=== PATIENT | male | born 1930 | race African-American/Black ===

== ENCOUNTER 2018-09-18 15:00 | Inpatient (IN) | payer MEDICARE, BC ==
[~2018-09-18] VITALS: Ht 172.7 cm; Wt 59.6 kg
[2018-09-18] MEDS ORDERED: SODIUM CHLORIDE 0.9% 1,000 ML IV ONE (15:30)
[2018-09-18 15:59] LABS: HEMATOCRIT. 46.9 % (42.0-52.0); HEMOGLOBIN. 15.8 g/dL (14.0-18.0); MEAN CORPUSCULAR HEMOGLOBIN 31.2 pg (28.0-32.0); MEAN CORPUSCULAR VOLUME 92.6 fL (80.0-94.0); MEAN PLATELET VOLUME 8.7 fl (7.4-10.4); PLATELET 145 x1000/uL (130-400); RED BLOOD CELL COUNT 5.07 mill/uL (4.7-6.1); RED CELL DISTRIBUTION WIDTH 13.5 % (11.6-14.6)
[2018-09-18 16:01] LABS: CHLORIDE 108 mEq/L (98-107)
[2018-09-18 16:43] LABS: CREATINE KINASE 811 IU/L (39-308)
[2018-09-18 16:52] LABS: PLATELET ESTIMATE NORMAL
[2018-09-18 17:07] LABS: CLARITY URINE CLEAR (CLEAR); COLOR URINE YELLOW (YELLOW); KETONES URINE 2+ (NEGATIVE); LEUKOCYTE ESTERASE URINE NEGATIVE (NEGATIVE); NITRITE URINE NEGATIVE (NEGATIVE); OCCULT BLOOD URINE 3+ (NEGATIVE); PROTEIN URINE 2+ (NEGATIVE); SPECIFIC GRAVITY URINE 1.021 (1.005-1.030)
[2018-09-18 22:30] VITALS: BP 148/77
[2018-09-18] MEDS: SODIUM CHLORIDE 0.45% 1,000 ML IV SCH (23:37)
[2018-09-19 04:34] VITALS: BP 185/89
[2018-09-19] MEDS: AMLODIPINE 10MG TABLET PO SCH (06:26)
[2018-09-19] MEDS: OMEPRAZOLE 20MG CAPSULE EXTENDED RELEASE PO SCH (06:26)
[2018-09-19] MEDS: LOSARTAN POTASSIUM 100 MG TABLET PO SCH (06:26)
[2018-09-19 08:00] VITALS: BP 171/84
[2018-09-19 09:00] VITALS: BP 141/69
[2018-09-19 09:00] LABS: BASOPHILS % 0.5 % (0.0-2.0); EOSINOPHILS % 1.1 % (0.0-5.0); HEMATOCRIT. 46.4 % (42.0-52.0); HEMOGLOBIN. 15.5 g/dL (14.0-18.0); LYMPHOCYTES % 11.7 % (20.0-50.0); MEAN CORPUSCULAR HEMOGLOBIN 31.1 pg (28.0-32.0); MEAN CORPUSCULAR VOLUME 92.9 fL (80.0-94.0); MEAN PLATELET VOLUME 8.5 fl (7.4-10.4); MONOCYTES % 8.5 % (2.0-8.0); NEUTROPHILS % 78.2 % (40.0-76.0); PLATELET 126 x1000/uL (130-400); RED BLOOD CELL COUNT 4.99 mill/uL (4.7-6.1); RED CELL DISTRIBUTION WIDTH 13.9 % (11.6-14.6)
[2018-09-19] MEDS ORDERED: AMLODIPINE 10MG TABLET PO SCH (09:00)
[2018-09-19] MEDS ORDERED: LOSARTAN POTASSIUM 100 MG TABLET PO SCH (09:00)
[2018-09-19] MEDS: CLONIDINE 0.1MG TABLET PO PRN (09:19)
[2018-09-19] MEDS: ENOXAPARIN 40MG/0.4ML SYR SUBCUT SCH (09:19)
[2018-09-19 09:28] LABS: CHLORIDE 109 mEq/L (98-107)
[2018-09-19 09:36] LABS: PHOSPHORUS 3.2 mg/dL (2.5-4.9)
[2018-09-19 09:55] LABS: CREATINE KINASE 1135 IU/L (39-308)
[2018-09-19] MEDS ORDERED: TIMO5DRO32 EACHEYE (12:23)
[2018-09-19] MEDS ORDERED: AZOPT EACHEYE (12:23)
[2018-09-19] MEDS ORDERED: LATA7.5D OP (12:23)
[2018-09-19] MEDS ORDERED: OMEP40CA34 MT (12:23)
[2018-09-19] MEDS ORDERED: ATOR10TA69 MT (14:39)
[2018-09-19] MEDS ORDERED: LOSA100T14 MT (14:39)
[2018-09-19] MEDS ORDERED: AMLO10TA80 MT (14:39)
[2018-09-19] MEDS ORDERED: MULT-1116 MT (14:39)
[2018-09-19] MEDS ORDERED: NIAC-9 MT (14:39)
[2018-09-19] MEDS: SODIUM CHLORIDE 0.45% 1,000 ML IV SCH (15:23)
[2018-09-19 20:36] VITALS: BP 144/70
[2018-09-19] MEDS ORDERED: ATORVASTATIN CALCIUM 10MG TABLET PO SCH (21:00)
[2018-09-20 00:37] VITALS: BP 138/72
[2018-09-20 04:00] VITALS: BP 206/96
[2018-09-20] MEDS: CLONIDINE 0.1MG TABLET PO PRN (04:20)
[2018-09-20] MEDS: OMEPRAZOLE 20MG CAPSULE EXTENDED RELEASE PO SCH (06:28)
[2018-09-20 07:39] LABS: CREATINE KINASE 837 IU/L (39-308)
[2018-09-20] MEDS: SODIUM CHLORIDE 0.45% 1,000 ML IV SCH (07:50)
[2018-09-20 08:00] VITALS: BP 139/60
[2018-09-20] MEDS: LOSARTAN POTASSIUM 100 MG TABLET PO SCH (08:50)
[2018-09-20] MEDS: AMLODIPINE 10MG TABLET PO SCH (08:51)
[2018-09-20] MEDS: ENOXAPARIN 40MG/0.4ML SYR SUBCUT SCH (08:51)
[2018-09-20] MEDS ORDERED: DOCUSATE SODIUM 250MG CAPSULE PO SCH (09:00)
[2018-09-20 12:47] VITALS: BP 137/76
[2018-09-20 15:05] VITALS: BP 137/76
[2018-09-20 16:56] VITALS: BP 132/76
== END 2018-09-20 18:47 | DRG 558 ==
LOC: ER 15:00 → 6WST 18:18 → EDBEDREQ 18:22 → EDBEDREQTM 18:22 → ENRESERV 21:12 → MICUSO 09-20 12:33 → 6WST 09-20 12:39
PROVIDERS: ADMIT Internal Medicine; ATTEND Internal Medicine
PROC: 5A09357 Assistance with Respiratory Ventilation, Less than 24 Consecutive Hours, Continuous Positive Airway Pressure (ICD-10-PCS; principal; 2018-09-18)
PROC: 5A09357 Assistance with Respiratory Ventilation, Less than 24 Consecutive Hours, Continuous Positive Airway Pressure (ICD-10-PCS; 2018-09-20)
DX: M62.82 Rhabdomyolysis (principal); W01.0XXA Fall on same level from slipping, tripping and stumbling without subsequent striking against object, initial encounter; Y92.002 Bathroom of unspecified non-institutional (private) residence as the place of occurrence of the external cause; G47.33 Obstructive sleep apnea (adult) (pediatric); I12.9 Hypertensive chronic kidney disease with stage 1 through stage 4 chronic kidney disease, or unspecified chronic kidney disease; N18.3 Chronic kidney disease, stage 3 (moderate); E78.00 Pure hypercholesterolemia, unspecified; E78.5 Hyperlipidemia, unspecified; F03.90 Unspecified dementia, unspecified severity, without behavioral disturbance, psychotic disturbance, mood disturbance, and anxiety; K21.9 Gastro-esophageal reflux disease without esophagitis; R32 Unspecified urinary incontinence; Y93.89 Activity, other specified; Y99.8 Other external cause status; Z79.899 Other long term (current) drug therapy
CPT/HCPCS: 36415; 71045; 73130; 80048; 82550; 83735; 83880; 84100; 84484; 93005; 96360; 96361; 97116; 97162; 97166; 97530; 97535; 99285; J1650; J7030; J7040

== ENCOUNTER 2018-09-20 18:45 | Inpatient (IN) | payer MEDICARE, BC ==
[~2018-09-20] VITALS: Ht 172.7 cm; Wt 59.0 kg
[~2018-09-20 18:45] MED LIST: AMLO10TA80 MT; ATOR10TA69 MT; AZOPT EACHEYE; LATA7.5D OP; LOSA100T14 MT; MULT-1116 MT; NIAC-9 MT; OMEP40CA34 MT; TIMO5DRO32 EACHEYE
[2018-09-20 20:00] VITALS: BP 139/79
[2018-09-20] MEDS ORDERED: CLONIDINE 0.1MG TABLET PO PRN (20:30)
[2018-09-20 22:00] VITALS: BP 153/84
[2018-09-20] MEDS: ATORVASTATIN CALCIUM 10MG TABLET PO SCH (22:15)
[2018-09-20] MEDS ORDERED: BISACODYL 5MG TABLET PO PRN (22:45)
[2018-09-21] MEDS: OMEPRAZOLE 20MG CAPSULE EXTENDED RELEASE PO SCH (05:44)
[2018-09-21 06:53] LABS: CHLORIDE 106 mEq/L (98-107)
[2018-09-21 08:00] VITALS: BP 152/74
[2018-09-21] MEDS: DOCUSATE SODIUM 250MG CAPSULE PO SCH (08:57)
[2018-09-21] MEDS: LOSARTAN POTASSIUM 100 MG TABLET PO SCH (08:57)
[2018-09-21] MEDS: AMLODIPINE 10MG TABLET PO SCH (08:57)
[2018-09-21] MEDS: ENOXAPARIN 40MG/0.4ML SYR SUBCUT SCH (08:58)
[2018-09-21 20:00] VITALS: BP 152/76
[2018-09-21] MEDS: ATORVASTATIN CALCIUM 10MG TABLET PO SCH (21:37)
[2018-09-22] MEDS: OMEPRAZOLE 20MG CAPSULE EXTENDED RELEASE PO SCH (06:29)
[2018-09-22 08:03] VITALS: BP 146/70
[2018-09-22] MEDS: DOCUSATE SODIUM 250MG CAPSULE PO SCH (08:40)
[2018-09-22] MEDS: LOSARTAN POTASSIUM 100 MG TABLET PO SCH (08:40)
[2018-09-22] MEDS: AMLODIPINE 10MG TABLET PO SCH (08:41)
[2018-09-22] MEDS: ENOXAPARIN 40MG/0.4ML SYR SUBCUT SCH (08:42)
[2018-09-22 20:00] VITALS: BP 149/71
[2018-09-22] MEDS: ATORVASTATIN CALCIUM 10MG TABLET PO SCH (21:33)
[2018-09-23] MEDS: OMEPRAZOLE 20MG CAPSULE EXTENDED RELEASE PO SCH (06:10)
[2018-09-23 07:00] VITALS: BP 132/69
[2018-09-23] MEDS: DOCUSATE SODIUM 250MG CAPSULE PO SCH ×3 (08:10→08:14)
[2018-09-23] MEDS: LOSARTAN POTASSIUM 100 MG TABLET PO SCH (08:10)
[2018-09-23] MEDS: AMLODIPINE 10MG TABLET PO SCH (08:11)
[2018-09-23] MEDS: ENOXAPARIN 40MG/0.4ML SYR SUBCUT SCH (08:11)
[2018-09-23 20:00] VITALS: BP 141/65
[2018-09-23] MEDS: ATORVASTATIN CALCIUM 10MG TABLET PO SCH (21:30)
[2018-09-24] MEDS: OMEPRAZOLE 20MG CAPSULE EXTENDED RELEASE PO SCH (07:01)
[2018-09-24 08:48] VITALS: BP 138/70
[2018-09-24] MEDS: AMLODIPINE 10MG TABLET PO SCH (09:20)
[2018-09-24] MEDS: DOCUSATE SODIUM 250MG CAPSULE PO SCH (09:20)
[2018-09-24] MEDS: LOSARTAN POTASSIUM 100 MG TABLET PO SCH (09:20)
[2018-09-24] MEDS: ENOXAPARIN 40MG/0.4ML SYR SUBCUT SCH (09:21)
[2018-09-24 19:48] VITALS: BP 113/63
[2018-09-24] MEDS: ATORVASTATIN CALCIUM 10MG TABLET PO SCH (21:39)
[2018-09-25 06:29] LABS: BASOPHILS % 0.4 % (0.0-2.0); EOSINOPHILS % 3.5 % (0.0-5.0); HEMOGLOBIN. 14.7 g/dL (14.0-18.0); LYMPHOCYTES % 27.5 % (20.0-50.0); MEAN CORPUSCULAR VOLUME 92.6 fL (80.0-94.0); MEAN PLATELET VOLUME 8.5 fl (7.4-10.4); MONOCYTES % 12.1 % (2.0-8.0); NEUTROPHILS % 56.5 % (40.0-76.0); PLATELET 136 x1000/uL (130-400); RED BLOOD CELL COUNT 4.75 mill/uL (4.7-6.1); RED CELL DISTRIBUTION WIDTH 13.5 % (11.6-14.6)
[2018-09-25 06:38] LABS: CHLORIDE 104 mEq/L (98-107)
[2018-09-25 06:46] LABS: PHOSPHORUS 3.3 mg/dL (2.5-4.9)
[2018-09-25 07:40] LABS: CLARITY URINE CLEAR (CLEAR); COLOR URINE YELLOW (YELLOW); KETONES URINE NEGATIVE (NEGATIVE); LEUKOCYTE ESTERASE URINE NEGATIVE (NEGATIVE); NITRITE URINE NEGATIVE (NEGATIVE); OCCULT BLOOD URINE 2+ (NEGATIVE); PH URINE 6.5 (4.5-8.0); PROTEIN URINE NEGATIVE (NEGATIVE); SPECIFIC GRAVITY URINE 1.017 (1.005-1.030)
[2018-09-25 08:00] VITALS: BP 122/64
[2018-09-25] MEDS: DOCUSATE SODIUM 250MG CAPSULE PO SCH (09:00)
[2018-09-25] MEDS: AMLODIPINE 10MG TABLET PO SCH (09:00)
[2018-09-25] MEDS: FAMOTIDINE 20MG TABLET PO SCH (09:50)
[2018-09-25] MEDS: ENOXAPARIN 40MG/0.4ML SYR SUBCUT SCH (09:51)
[2018-09-25] MEDS: LOSARTAN POTASSIUM 100 MG TABLET PO SCH (09:52)
[2018-09-25 20:00] VITALS: BP 136/60
[2018-09-25] MEDS: ATORVASTATIN CALCIUM 10MG TABLET PO SCH (20:56)
[2018-09-26 08:00] VITALS: BP 122/76
[2018-09-26] MEDS: DOCUSATE SODIUM 250MG CAPSULE PO SCH ×2 (09:00→09:08)
[2018-09-26] MEDS: FAMOTIDINE 20MG TABLET PO SCH (09:08)
[2018-09-26] MEDS: ENOXAPARIN 40MG/0.4ML SYR SUBCUT SCH (09:08)
[2018-09-26] MEDS: LOSARTAN POTASSIUM 100 MG TABLET PO SCH (09:08)
[2018-09-26] MEDS: AMLODIPINE 10MG TABLET PO SCH (09:09)
[2018-09-26 20:00] VITALS: BP 116/58
[2018-09-26] MEDS: ATORVASTATIN CALCIUM 10MG TABLET PO SCH (21:03)
[2018-09-27 08:16] VITALS: BP 120/75
[2018-09-27] MEDS: DOCUSATE SODIUM 250MG CAPSULE PO SCH (09:00)
[2018-09-27] MEDS: LOSARTAN POTASSIUM 100 MG TABLET PO SCH (09:08)
[2018-09-27] MEDS: ENOXAPARIN 40MG/0.4ML SYR SUBCUT SCH (09:08)
[2018-09-27] MEDS: AMLODIPINE 10MG TABLET PO SCH (09:08)
[2018-09-27] MEDS: FAMOTIDINE 20MG TABLET PO SCH (09:10)
[2018-09-27 20:00] VITALS: BP 124/62
[2018-09-27] MEDS: ATORVASTATIN CALCIUM 10MG TABLET PO SCH (21:30)
[2018-09-28] MEDS: FAMOTIDINE 20MG TABLET PO SCH (08:18)
[2018-09-28] MEDS: ENOXAPARIN 40MG/0.4ML SYR SUBCUT SCH (08:18)
[2018-09-28] MEDS: DOCUSATE SODIUM 250MG CAPSULE PO SCH (08:18)
[2018-09-28] MEDS: AMLODIPINE 10MG TABLET PO SCH (08:18)
[2018-09-28] MEDS: LOSARTAN POTASSIUM 100 MG TABLET PO SCH (08:19)
[2018-09-28 08:42] VITALS: BP 120/70
[2018-09-28 20:00] VITALS: BP 122/68
[2018-09-28] MEDS: ATORVASTATIN CALCIUM 10MG TABLET PO SCH (20:42)
[2018-09-29] MEDS: FAMOTIDINE 20MG TABLET PO SCH (08:40)
[2018-09-29] MEDS: LOSARTAN POTASSIUM 100 MG TABLET PO SCH (08:41)
[2018-09-29] MEDS: AMLODIPINE 10MG TABLET PO SCH (08:41)
[2018-09-29] MEDS: DOCUSATE SODIUM 250MG CAPSULE PO SCH (08:41)
[2018-09-29] MEDS: ENOXAPARIN 40MG/0.4ML SYR SUBCUT SCH (08:42)
[2018-09-29 08:53] VITALS: BP 115/74
[2018-09-29 20:00] VITALS: BP 140/67
[2018-09-29] MEDS: ATORVASTATIN CALCIUM 10MG TABLET PO SCH (20:53)
[2018-09-30 07:30] VITALS: BP 141/65
[2018-09-30] MEDS: AMLODIPINE 10MG TABLET PO SCH (08:55)
[2018-09-30] MEDS: FAMOTIDINE 20MG TABLET PO SCH (08:55)
[2018-09-30] MEDS: LOSARTAN POTASSIUM 100 MG TABLET PO SCH (08:55)
[2018-09-30] MEDS: DOCUSATE SODIUM 250MG CAPSULE PO SCH ×2 (08:55→09:00)
[2018-09-30] MEDS: ENOXAPARIN 40MG/0.4ML SYR SUBCUT SCH (08:56)
[2018-09-30 20:00] VITALS: BP 116/59
[2018-09-30] MEDS: ATORVASTATIN CALCIUM 10MG TABLET PO SCH (20:15)
[2018-10-01 08:00] VITALS: BP 134/66
[2018-10-01] MEDS: DOCUSATE SODIUM 250MG CAPSULE PO SCH (09:00)
[2018-10-01] MEDS: AMLODIPINE 10MG TABLET PO SCH (09:18)
[2018-10-01] MEDS: FAMOTIDINE 20MG TABLET PO SCH (09:18)
[2018-10-01] MEDS: LOSARTAN POTASSIUM 100 MG TABLET PO SCH (09:18)
[2018-10-01] MEDS: ENOXAPARIN 40MG/0.4ML SYR SUBCUT SCH (09:19)
[2018-10-01 11:32] VITALS: BP 134/66
== END 2018-10-01 13:00 | disposition home health service (06) | DRG 948 ==
PROVIDERS: ADMIT Psychiatry & Neurology Neurology; ATTEND Internal Medicine
DX: R53.81 Other malaise (principal); M62.82 Rhabdomyolysis; J84.9 Interstitial pulmonary disease, unspecified; I12.9 Hypertensive chronic kidney disease with stage 1 through stage 4 chronic kidney disease, or unspecified chronic kidney disease; G47.33 Obstructive sleep apnea (adult) (pediatric); F03.90 Unspecified dementia, unspecified severity, without behavioral disturbance, psychotic disturbance, mood disturbance, and anxiety; E78.5 Hyperlipidemia, unspecified; K21.9 Gastro-esophageal reflux disease without esophagitis; N18.3 Chronic kidney disease, stage 3 (moderate); I87.2 Venous insufficiency (chronic) (peripheral); J44.9 Chronic obstructive pulmonary disease, unspecified; H91.93 Unspecified hearing loss, bilateral; M19.90 Unspecified osteoarthritis, unspecified site; Z60.2 Problems related to living alone; Z79.899 Other long term (current) drug therapy
CPT/HCPCS: 36415; 80048; 83735; 84100; 85651; 94640; 94660; 97110; 97112; 97116; 97163; 97166; 97530; 97535; A6261; J1650